=== PATIENT | female | born 1975 | race Caucasian/White ===

== ENCOUNTER → 2016-11-03 | Outpatient (CLI) | payer OTHER ==
[~2016-11-03] MED LIST: ANAPROX DS550 MG PO; CIPRO500 MG PO; CLARITIN10 MG PO; COMBIVENT1 ARO IH; COREG12.5 MG PO; COZAAR100 MG PO; COZAAR25 M1 PO; EFFEXOR XR37.5 M1 PO; FLEXERIL10 MG PO; HYCODAN/HYDROMET5 ML PO; HYDROCODONE BIT1 T11 PO; IBU-8800 MG PO; LEVOFLOXACIN500 MG PO; LISINOPRIL10 MG PO; LISINOPRIL2.5 MG PO; LISINOPRIL5 MG PO; MELATONIN1 M1 PO; METFORMIN ER500 MG PO; METFORMIN500 MG PO; MOTRIN800 MG PO; NKHM; PROZAC20 MG PO; PYRIDIUM200 M1 PO; SPRINTEC 35 MCG1 TA1 PO; WELLBUTRIN SR150 MG PO; ZITHROMAX Z PA250 MG PO; ZITHROMAX250 MG PO; ZYRTEC10 MG PO; [UNRECOGNIZED DRUG - OTHER]
[2016-11-03 13:09] LABS: BUN 18 mg/dl (7-24); CARBON DIOXIDE 27 mmol/L (21-32); CHLORIDE 109 mmol/L (98-107); EST GLOM FILT AFRICAN AMERICAN > 60 ml/min; GLUCOSE 93 mg/dL (65-99); MAGNESIUM 1.8 mg/dL (1.5-2.1); POTASSIUM 4.4 mmol/L (3.5-5.1); SODIUM 144 mmol/L (136-145)
[2016-11-05 08:09] LABS: MICRO ALBUMIN/CRE RATIO 2521.3 (0.0-30.0)
== END | disposition home or self-care (01) ==
LOC: LAB 12:22
PROVIDERS: Internal Medicine Nephrology
DX: I10 Essential (primary) hypertension (principal); R80.9 Proteinuria, unspecified

== ENCOUNTER → 2017-01-15 | Outpatient (CLI) | payer OTHER ==
[2017-01-15 14:14] LABS: POTASSIUM 4.1 mmol/L (3.5-5.1)
== END | disposition home or self-care (01) ==
LOC: LAB 13:23
PROVIDERS: Family Medicine
DX: I10 Essential (primary) hypertension (principal); R05 Cough; R80.9 Proteinuria, unspecified; R07.9 Chest pain, unspecified; R06.02 Shortness of breath; M47.894 Other spondylosis, thoracic region

== ENCOUNTER 2017-02-28 09:08 | Emergency (ER) | payer OTHER ==
[~2017-02-28] VITALS: Ht 157.4 cm; Wt 90.7 kg
[2017-02-28] MEDS ORDERED: IBU800 M1 PO (09:15)
[2017-02-28] MEDS ORDERED: ASMANEX220 MCG INH (09:15)
[2017-02-28] MEDS ORDERED: CLARITHROMYCIN500 MG PO (09:15)
[2017-02-28] MEDS ORDERED: TEKTURNA150 MG PO (09:15)
[2017-02-28] MEDS ORDERED: VENTOLIN H0.09 MG/AC INH (09:16)
[2017-02-28] MEDS ORDERED: ALBUTEROL SULF0.5 M1 INH (09:16)
[2017-02-28] MEDS ORDERED: ZOFRAN4 MG PO (10:17)
[2017-02-28] MEDS ORDERED: ROBITUSSIN AC 110 ML PO (10:17)
[2017-02-28] MEDS ORDERED: FLONASE ALLERG9.9 ML NAS (10:17)
== END 2017-02-28 10:24 | disposition home or self-care (01) ==
LOC: ED 09:08
DX: J20.9 Acute bronchitis, unspecified (principal); R03.0 Elevated blood-pressure reading, without diagnosis of hypertension; Z79.899 Other long term (current) drug therapy

== ENCOUNTER → 2017-06-23 | Outpatient (CLI) | payer OTHER ==
[~2017-06-23] MED LIST changes: +ALBUTEROL SULF0.5 M1 INH; +ASMANEX220 MCG INH; +CLARITHROMYCIN500 MG PO; +FLONASE ALLERG9.9 ML NAS; +IBU800 M1 PO; +ROBITUSSIN AC 110 ML PO; +TEKTURNA150 MG PO; +VENTOLIN H0.09 MG/AC INH; +ZOFRAN4 MG PO
[2017-06-23 17:09] LABS: BUN 18 mg/dl (7-24); CHLORIDE 111 mmol/L (98-107); CREATININE 1.12 mg/dL (0.55-1.02); POTASSIUM 4.2 mmol/L (3.5-5.1); SODIUM 140 mmol/L (136-145)
[2017-06-24 10:05] LABS: CREATININE,URINE 57.1 mg/dL (Not Estab.); MICRO ALBUMIN/CRE RATIO 2033.5 (0.0-30.0)
== END | disposition home or self-care (01) ==
LOC: LAB 16:42
PROVIDERS: Internal Medicine Nephrology
DX: I10 Essential (primary) hypertension (principal); R80.9 Proteinuria, unspecified

== ENCOUNTER → 2017-08-11 | Outpatient (CLI) | payer OTHER | END | disposition home or self-care (01) | LOC: LAB 14:40 | DX: R16.1 Splenomegaly, not elsewhere classified (principal) ==

== ENCOUNTER → 2017-09-01 | Outpatient (CLI) | payer OTHER ==
[2017-09-02 08:09] LABS: RHEUMATOID ARTHRITIS FACTOR 15.7 IU/mL (0.0-13.9)
[2017-09-02 15:06] LABS: EBV NUCLEAR ANTIGEN IGG 39.7 U/mL (0.0-17.9); EPSTEIN-BARR VCA IGM AB 40.1 U/mL (0.0-35.9)
[2017-09-03 00:03] LABS: CCP ANTIBODIES IGG/IGA 3 units (0-19)
== END | disposition home or self-care (01) ==
LOC: LAB 15:02
PROVIDERS: Family Medicine
DX: R53.83 Other fatigue (principal); R16.1 Splenomegaly, not elsewhere classified; M06.9 Rheumatoid arthritis, unspecified

== ENCOUNTER 2017-10-16 00:57 | Emergency (ER) | payer OTHER ==
[~2017-10-16] VITALS: Ht 157.4 cm; Wt 90.7 kg
[2017-10-16] MEDS ORDERED: TESSALON PERLE100 M1 PO (01:43)
[2017-10-16] MEDS ORDERED: CLARITIN10 MG PO (01:43)
== END 2017-10-16 02:21 | disposition home or self-care (01) ==
LOC: ED 00:57
DX: J40 Bronchitis, not specified as acute or chronic (principal); J06.9 Acute upper respiratory infection, unspecified; Z79.899 Other long term (current) drug therapy

== ENCOUNTER → 2017-10-27 | Outpatient (CLI) | payer OTHER ==
[~2017-10-27] MED LIST changes: +TESSALON PERLE100 M1 PO
[2017-10-27 13:18] LABS: BILIRUBIN NEGATIVE (NEGATIVE); BLOOD 1+ (NEGATIVE); CLARITY SL CLOUDY (CLEAR); COLOR YELLOW (YELLOW); GLUCOSE NEGATIVE (NEGATIVE); KETONE NEGATIVE (NEGATIVE); LEUKO ESTERASE TRACE (NEGATIVE); NITRITE NEGATIVE (NEGATIVE); SPECIFIC GRAVITY >= 1.030 (1.005-1.030); UROBILINOGEN 0.2 E.U./dl (0.2-1.0)
[2017-10-27 13:28] LABS: BACTERIA 2+
[2017-10-27 13:48] LABS: BUN 18 mg/dl (7-24); CHLORIDE 108 mmol/L (98-107); CREATININE 1.06 mg/dL (0.55-1.02); POTASSIUM 4.4 mmol/L (3.5-5.1); SODIUM 140 mmol/L (136-145)
[2017-10-28 06:10] LABS: CREATININE,URINE 129.2 mg/dL (Not Estab.)
== END | disposition home or self-care (01) ==
LOC: LAB 12:32
PROVIDERS: Internal Medicine Nephrology
DX: I10 Essential (primary) hypertension (principal); R80.9 Proteinuria, unspecified; M10.9 Gout, unspecified

== ENCOUNTER → 2018-08-19 | Outpatient (CLI) | payer OTHER ==
[~2018-08-19] MED LIST changes: +KEFLEX500 M1 PO; +SEPTDS PO
[2018-08-19 14:12] LABS: HEMATOCRIT 34.7 % (37.0-47.0); HEMOGLOBIN 11.9 g/dl (12.0-16.0); MEAN CELL VOLUME 87.6 fl (81.0-99.0); MEAN CORPUSCULAR HGB 30.1 pg (27.0-31.0); MEAN CORPUSCULAR HGB CONC 34.3 g/dl (33.0-37.0); MEAN PLATELET VOLUME 9.5 fl (9.6-12.3); RED BLOOD COUNT 3.96 10*6/uL (4.10-5.10); RED CELL DISTRI WIDTH 13.4 % (0-14.5); WHITE BLOOD COUNT 7.4 10*3/uL (4.8-10.8)
[2018-08-19 14:27] LABS: ALBUMIN 2.7 gm/dl (3.1-4.5); ALKALINE PHOSPHATASE 58 U/L (45-117); BUN 15 mg/dl (7-24); CHLORIDE 108 mmol/L (98-107); CHOLESTEROL 126 mg/dL (<200); CREATININE 1.09 mg/dL (0.55-1.02); POTASSIUM 4.4 mmol/L (3.5-5.1); SGOT/AST 15 IU/L (3-35); SGPT/ALT 23 U/L (12-78); SODIUM 141 mmol/L (136-145); TOTAL PROTEIN 6.8 gm/dL (6.4-8.2); TRIGLYCERIDES 158 mg/dl (<150); VLDL CHOLESTEROL 32 mg/dL (6-40)
[2018-08-19 14:35] LABS: HDL CHOLESTEROL 52 mg/dl (40-60); LDL CHOLESTEROL 42 mg/dL (9-159)
[2018-08-19 15:45] LABS: VITAMIN D, 25-HYDROXY 33.8 ng/mL (30-100)
== END | disposition home or self-care (01) ==
LOC: LAB 13:54
PROVIDERS: Family Medicine
DX: E78.00 Pure hypercholesterolemia, unspecified (principal); F41.1 Generalized anxiety disorder; E74.00 Glycogen storage disease, unspecified; R63.5 Abnormal weight gain; R53.83 Other fatigue; Q61.3 Polycystic kidney, unspecified

== ENCOUNTER 2018-12-24 20:12 | Emergency (ER) | payer OTHER ==
[~2018-12-24] VITALS: Ht 157.4 cm; Wt 89.8 kg
[2018-12-24 20:32] LABS: BILIRUBIN NEGATIVE (NEGATIVE); BLOOD 2+ (NEGATIVE); CLARITY CLEAR (CLEAR); COLOR YELLOW (YELLOW); GLUCOSE NEGATIVE (NEGATIVE); KETONE NEGATIVE (NEGATIVE); LEUKO ESTERASE NEGATIVE (NEGATIVE); NITRITE NEGATIVE (NEGATIVE); PH 5.5 (5.0-9.0); SPECIFIC GRAVITY >= 1.030 (1.005-1.030); UROBILINOGEN 0.2 E.U./dl (0.2-1.0)
[2018-12-24 20:46] LABS: BACTERIA 2+
[2018-12-24 21:22] LABS: HEMATOCRIT 36.2 % (37.0-47.0); HEMOGLOBIN 12.5 g/dl (12.0-16.0); MEAN CELL VOLUME 88.1 fl (81.0-99.0); MEAN CORPUSCULAR HGB 30.4 pg (27.0-31.0); MEAN CORPUSCULAR HGB CONC 34.5 g/dl (33.0-37.0); MEAN PLATELET VOLUME 9.6 fl (9.6-12.3); PLATELET COUNT AUTOMATED 184 10*3/uL (130-400); RED BLOOD COUNT 4.11 10*6/uL (4.10-5.10); RED CELL DISTRI WIDTH 13.4 % (0-14.5); WHITE BLOOD COUNT 9.4 10*3/uL (4.8-10.8)
[2018-12-24 21:45] LABS: TOTAL CELLS COUNTED 100 #CELLS
[2018-12-24 21:46] LABS: PLATELET SUFFICIENCY NORMAL (NORMAL)
[2018-12-24 21:47] LABS: ALBUMIN 2.6 gm/dl (3.1-4.5); ALKALINE PHOSPHATASE 60 U/L (45-117); BUN 20 mg/dl (7-24); CHLORIDE 107 mmol/L (98-107); CREATININE 1.13 mg/dL (0.55-1.02); LIPASE 83 U/L (73-393); POTASSIUM 3.8 mmol/L (3.5-5.1); SGOT/AST 11 IU/L (3-35); SGPT/ALT 22 U/L (12-78); SODIUM 138 mmol/L (136-145); TOTAL PROTEIN 6.6 gm/dL (6.4-8.2)
[2018-12-24] MEDS ORDERED: ZOFRAN4 MG PO (23:30)
[2018-12-24] MEDS ORDERED: LOMOTIL 2.5-0.1 EACH PO (23:31)
== END 2018-12-24 23:29 | disposition home or self-care (01) ==
LOC: ED 20:12
PROVIDERS: Emergency Medicine Emergency Medical Services
DX: K52.9 Noninfective gastroenteritis and colitis, unspecified (principal); E86.0 Dehydration; Z87.442 Personal history of urinary calculi; Z79.2 Long term (current) use of antibiotics; Z79.899 Other long term (current) drug therapy

== ENCOUNTER → 2019-01-11 | Outpatient (CLI) | payer OTHER ==
[~2019-01-11] MED LIST changes: +LOMOTIL 2.5-0.1 EACH PO
[2019-01-11 16:03] LABS: HEMATOCRIT 36.4 % (37.0-47.0); HEMOGLOBIN 12.7 g/dl (12.0-16.0); MEAN CELL VOLUME 87.9 fl (81.0-99.0); MEAN CORPUSCULAR HGB 30.7 pg (27.0-31.0); MEAN CORPUSCULAR HGB CONC 34.9 g/dl (33.0-37.0); MEAN PLATELET VOLUME 9.6 fl (9.6-12.3); RED BLOOD COUNT 4.14 10*6/uL (4.10-5.10); RED CELL DISTRI WIDTH 13.3 % (0-14.5); WHITE BLOOD COUNT 7.9 10*3/uL (4.8-10.8)
[2019-01-11 16:33] LABS: ALBUMIN 2.9 gm/dl (3.1-4.5); ALKALINE PHOSPHATASE 59 U/L (45-117); BUN 17 mg/dl (7-24); CHLORIDE 108 mmol/L (98-107); CHOLESTEROL 122 mg/dL (<200); CREATININE 1.11 mg/dL (0.55-1.02); HDL CHOLESTEROL 57 mg/dl (40-60); LDL CHOLESTEROL 41 mg/dL (9-159); POTASSIUM 4.4 mmol/L (3.5-5.1); SGOT/AST 13 IU/L (3-35); SGPT/ALT 18 U/L (12-78); SODIUM 140 mmol/L (136-145); TOTAL PROTEIN 7.1 gm/dL (6.4-8.2); TRIGLYCERIDES 122 mg/dl (<150); VLDL CHOLESTEROL 24 mg/dL (6-40)
== END | disposition home or self-care (01) ==
LOC: LAB 15:38
PROVIDERS: Family Medicine
DX: Q61.3 Polycystic kidney, unspecified (principal); E55.9 Vitamin D deficiency, unspecified; G62.9 Polyneuropathy, unspecified; M25.50 Pain in unspecified joint

== ENCOUNTER → 2019-02-10 | Outpatient (CLI) | payer OTHER ==
[2019-02-10 13:03] LABS: HEMATOCRIT 32.4 % (37.0-47.0); HEMOGLOBIN 10.6 g/dl (12.0-16.0); MEAN CORPUSCULAR HGB 31.1 pg (27.0-31.0); MEAN CORPUSCULAR HGB CONC 32.7 g/dl (33.0-37.0); RED BLOOD COUNT 3.41 10*6/uL (4.10-5.10); WHITE BLOOD COUNT 7.1 10*3/uL (4.8-10.8)
[2019-02-10 13:21] LABS: URINE CREATININE RANDOM 77.5 mg/dL
[2019-02-10 13:22] LABS: BILIRUBIN NEGATIVE (NEGATIVE); BLOOD 2+ (NEGATIVE); CLARITY CLEAR (CLEAR); COLOR YELLOW (YELLOW); GLUCOSE NEGATIVE (NEGATIVE); KETONE NEGATIVE (NEGATIVE); LEUKO ESTERASE NEGATIVE (NEGATIVE); NITRITE NEGATIVE (NEGATIVE); PH 6.5 (5.0-9.0); UROBILINOGEN 0.2 E.U./dl (0.2-1.0)
[2019-02-10 13:35] LABS: BUN 23 mg/dl (7-24); CHLORIDE 109 mmol/L (98-107); CREATININE 1.12 mg/dL (0.55-1.02); PHOSPHOROUS 3.3 mg/dL (2.5-4.9); SODIUM 143 mmol/L (136-145)
[2019-02-10 13:37] LABS: EPITHELIAL CELLS 21-30
[2019-02-10 13:38] LABS: ALBUMIN 2.6 gm/dl (3.1-4.5); ALKALINE PHOSPHATASE 57 U/L (45-117); BUN 25 mg/dl (7-24); CHLORIDE 109 mmol/L (98-107); CREATININE 1.12 mg/dL (0.55-1.02); SGOT/AST 13 IU/L (3-35); SGPT/ALT 22 U/L (12-78); SODIUM 142 mmol/L (136-145)
[2019-02-10 13:42] LABS: PTH INTACT 60.5 pg/mL (18.5-88.0); VITAMIN D, 25-HYDROXY 23.6 ng/mL (30-100)
[2019-02-11 10:04] LABS: CREATININE,URINE 68.8 mg/dL (Not Estab.); MICRO ALBUMIN/CRE RATIO 1729.5 (0.0-30.0)
== END | disposition home or self-care (01) ==
LOC: LAB 12:29
PROVIDERS: Family Medicine; Internal Medicine Nephrology
DX: R80.0 Isolated proteinuria (principal); N05.1 Unspecified nephritic syndrome with focal and segmental glomerular lesions; R31.29 Other microscopic hematuria; I10 Essential (primary) hypertension; D64.9 Anemia, unspecified

== ENCOUNTER → 2019-03-14 | Outpatient (CLI) | payer OTHER ==
[2019-03-14 12:01] LABS: HEMOGLOBIN 12.8 g/dl (12.0-16.0)
[2019-03-14 12:34] LABS: BUN 13 mg/dl (7-24); CHLORIDE 107 mmol/L (98-107); CREATININE 1.16 mg/dL (0.55-1.02); IRON 82 ug/dL (50-170); POTASSIUM 4.3 mmol/L (3.5-5.1); SODIUM 141 mmol/L (136-145)
[2019-03-14 12:35] LABS: TOTAL IRON BINDING CAPACITY 255 ug/dl (250-450)
[2019-03-14 12:53] LABS: BILIRUBIN NEGATIVE (NEGATIVE); BLOOD 3+ (NEGATIVE); CLARITY CLOUDY (CLEAR); COLOR YELLOW (YELLOW); GLUCOSE NEGATIVE (NEGATIVE); KETONE NEGATIVE (NEGATIVE); LEUKO ESTERASE NEGATIVE (NEGATIVE); NITRITE NEGATIVE (NEGATIVE); PH 5.5 (5.0-9.0); SPECIFIC GRAVITY 1.025 (1.005-1.030); UROBILINOGEN 0.2 E.U./dl (0.2-1.0)
[2019-03-14 12:57] LABS: URINE CREATININE RANDOM 85.4 mg/dL
[2019-03-14 13:36] LABS: RBC TNTC rbc/hpf (0-2)
[2019-03-15 10:05] LABS: CREATININE,URINE 78.5 mg/dL (Not Estab.)
== END | disposition home or self-care (01) ==
LOC: LAB 11:37
PROVIDERS: Internal Medicine Nephrology
DX: N05.1 Unspecified nephritic syndrome with focal and segmental glomerular lesions (principal)

== ENCOUNTER → 2019-04-12 | Outpatient (CLI) | payer OTHER ==
[2019-04-12 12:34] LABS: BILIRUBIN NEGATIVE (NEGATIVE); BLOOD 1+ (NEGATIVE); CLARITY SL CLOUDY (CLEAR); COLOR YELLOW (YELLOW); GLUCOSE NEGATIVE (NEGATIVE); KETONE NEGATIVE (NEGATIVE); LEUKO ESTERASE NEGATIVE (NEGATIVE); NITRITE NEGATIVE (NEGATIVE); SPECIFIC GRAVITY 1.025 (1.005-1.030); UROBILINOGEN 0.2 E.U./dl (0.2-1.0)
[2019-04-12 12:44] LABS: WBC 0-2 wbc/hpf (0-5)
[2019-04-12 12:53] LABS: URINE CREATININE RANDOM 92.3 mg/dL
[2019-04-12 12:58] LABS: HEMATOCRIT 40.5 % (37.0-47.0); HEMOGLOBIN 13.7 g/dl (12.0-16.0)
[2019-04-12 13:01] LABS: CREATININE 1.22 mg/dL (0.55-1.02); POTASSIUM 4.6 mmol/L (3.5-5.1)
[2019-04-13 11:07] LABS: CREATININE,URINE 77.8 mg/dL (Not Estab.); MICRO ALBUMIN/CRE RATIO 3230.2 (0.0-30.0)
== END | disposition home or self-care (01) ==
LOC: LAB 12:01 → US 12:30
PROVIDERS: Internal Medicine Nephrology
DX: N18.3 Chronic kidney disease, stage 3 (moderate) (principal); N05.1 Unspecified nephritic syndrome with focal and segmental glomerular lesions

== ENCOUNTER → 2019-05-26 | Outpatient (CLI) | payer OTHER | END | disposition home or self-care (01) | LOC: MAMMO 12:33 | DX: Z12.31 Encounter for screening mammogram for malignant neoplasm of breast (principal) ==

== ENCOUNTER 2019-08-22 15:13 | Emergency (ER) | payer OTHER ==
[~2019-08-22] VITALS: Ht 157.4 cm; Wt 90.7 kg
[2019-08-22] MEDS ORDERED: Motrin,Rufen800 MG PO (17:28)
[2019-08-22] MEDS ORDERED: CYCLOBENZAPRINE5 M3 PO (17:28)
== END 2019-08-22 16:51 | disposition home or self-care (01) ==
LOC: ED 15:13
DX: S16.1XXA Strain of muscle, fascia and tendon at neck level, initial encounter (principal); S39.012A Strain of muscle, fascia and tendon of lower back, initial encounter; R51 Headache; R07.89 Other chest pain; Z79.899 Other long term (current) drug therapy; V89.2XXA Person injured in unspecified motor-vehicle accident, traffic, initial encounter; Y93.89 Activity, other specified; Y92.488 Other paved roadways as the place of occurrence of the external cause; Y99.8 Other external cause status

== ENCOUNTER → 2019-10-17 | Outpatient (CLI) | payer OTHER ==
[~2019-10-17] MED LIST changes: +CYCLOBENZAPRINE5 M3 PO; +Motrin,Rufen800 MG PO
== END | disposition home or self-care (01) ==
LOC: US 16:40
DX: Q61.2 Polycystic kidney, adult type (principal)

== ENCOUNTER → 2019-11-15 | Outpatient (CLI) | payer OTHER ==
[2019-11-15 14:33] LABS: HEMATOCRIT 41.9 % (37.0-47.0); HEMOGLOBIN 14.5 g/dl (12.0-16.0); MEAN CELL VOLUME 90.5 fl (81.0-99.0); MEAN CORPUSCULAR HGB 31.3 pg (27.0-31.0); MEAN CORPUSCULAR HGB CONC 34.6 g/dl (33.0-37.0); MEAN PLATELET VOLUME 10.7 fl (9.6-12.3); RED BLOOD COUNT 4.63 10*6/uL (4.10-5.10); RED CELL DISTRI WIDTH 12.7 % (0-14.5); WHITE BLOOD COUNT 7.5 10*3/uL (4.8-10.8)
[2019-11-15 15:06] LABS: ALBUMIN 3.4 gm/dl (3.1-4.5); CREATININE 1.45 mg/dL (0.55-1.02); POTASSIUM 4.9 mmol/L (3.5-5.1); URIC ACID 8.5 mg/dL (2.6-6.0)
== END | disposition home or self-care (01) ==
LOC: LAB 13:51
PROVIDERS: Nurse Practitioner Family
DX: M25.571 Pain in right ankle and joints of right foot (principal); E78.00 Pure hypercholesterolemia, unspecified; M10.9 Gout, unspecified

== ENCOUNTER → 2019-12-06 | Outpatient (CLI) | payer OTHER | END | disposition home or self-care (01) | LOC: RAD 15:56 | DX: R06.02 Shortness of breath (principal); R05 Cough ==

== ENCOUNTER 2020-01-08 14:14 | Emergency (ER) | payer OTHER ==
[~2020-01-08] VITALS: Ht 157.4 cm; Wt 90.7 kg
[2020-01-08 15:24] LABS: BASO % 0.4 % (0.0-1.0); EOS # 0.3 10*3/uL (0.0-0.4); EOS % 4.9 % (1.0-4.0); HEMATOCRIT 38.6 % (37.0-47.0); HEMOGLOBIN 13.3 g/dl (12.0-16.0); LYMPH # 1.3 10*3/uL (1.3-4.4); LYMPH % 23.7 % (27.0-41.0); MEAN CELL VOLUME 90.4 fl (81.0-99.0); MEAN CORPUSCULAR HGB 31.1 pg (27.0-31.0); MEAN CORPUSCULAR HGB CONC 34.5 g/dl (33.0-37.0); MONO # 0.5 10*3/uL (0.1-1.0); MONO % 10.2 % (3.0-9.0); NEUT # 3.2 10*3/uL (2.3-7.9); NEUT % 60.4 % (47.0-73.0); PLATELET COUNT AUTOMATED 184 10*3/uL (130-400); RED BLOOD COUNT 4.27 10*6/uL (4.10-5.10); RED CELL DISTRI WIDTH 13.2 % (0-14.5); WHITE BLOOD COUNT 5.3 10*3/uL (4.8-10.8)
[2020-01-08 15:38] LABS: ALBUMIN 3.2 gm/dl (3.1-4.5); CREATININE 1.22 mg/dL (0.55-1.02); POTASSIUM 4.2 mmol/L (3.5-5.1); TOTAL PROTEIN 6.4 gm/dL (6.4-8.2)
== END 2020-01-08 16:45 | disposition home or self-care (01) ==
LOC: ED 14:14
PROVIDERS: Nurse Practitioner Family
DX: B34.9 Viral infection, unspecified (principal); I10 Essential (primary) hypertension; F32.9 Major depressive disorder, single episode, unspecified; J45.909 Unspecified asthma, uncomplicated; Z79.899 Other long term (current) drug therapy; Z79.2 Long term (current) use of antibiotics

== ENCOUNTER 2020-05-09 15:03 | Emergency (ER) | payer OTHER ==
[~2020-05-09] VITALS: Ht 157.4 cm; Wt 90.7 kg
[2020-05-09] MEDS ORDERED: WELLBUTRIN XL150 MG PO (15:37)
[2020-05-09] MEDS ORDERED: PROZAC20 MG PO (15:38)
[2020-05-09] MEDS ORDERED: D3 DOTS50 MCG PO (15:39)
[2020-05-09] MEDS ORDERED: TOPROL XL25 MG PO (15:41)
[2020-05-09] MEDS ORDERED: TOPIRAMATE25 M1 PO (15:42)
[2020-05-09] MEDS ORDERED: COLCHICINE0.6 M1 PO (15:43)
[2020-05-09] MEDS ORDERED: MEDROL DOSEPAK4 MG PO (17:05)
== END 2020-05-09 17:20 | disposition home or self-care (01) ==
LOC: ED 15:03
DX: M10.9 Gout, unspecified (principal); M79.672 Pain in left foot; M25.572 Pain in left ankle and joints of left foot; I10 Essential (primary) hypertension; J45.909 Unspecified asthma, uncomplicated; Z79.899 Other long term (current) drug therapy